=== PATIENT | male | born 1990 | race Caucasian/White ===

== ENCOUNTER 2016-09-06 10:45 | Emergency (ER) | payer BC, OTHER ==
[~2016-09-06] VITALS: Wt 81.8 kg
--- NOTE | 2016-09-06 11:17 | ERA ---
ER Documentation Chief Complaint Date/Time DATE: 09/06/16 TIME: 11:11 Chief Complaint wound recheck HPI Patient is 26-year-old male who is in [place] 10 days ago and sustained an injury to his legs bilaterally. [place] him in when he sustained cuts to his legs bilaterally. Was seen and evaluated in [place] where he stitches to his left lower leg and Bactrim and Keflex. Patient denies any discharge, swelling, increasing pain or fever since the injury. Patient denies any neurological deficits. There are no other associated manifestations. Patient has been taking medication prescribed in a stroller for swelling and pain. ROS All systems reviewed and are negative except as per history of present illness. Allergies Allergies: Coded Allergies: No Known Allergy (Unverified , 03/05/14) PMhx/Soc Hx Alcohol Use: Yes (OCCASIONALLY) Hx Substance Use: No Hx Tobacco Use: No Physical Exam Vitals Vital Signs Date Time Temp Pulse Resp B/P Pulse Ox O2 Delivery O2 Flow Rate FiO2 09/06/16 11:00 97.9 73 20 132/73 97 Physical Exam Const: Well-appearing 26-year-old male. Bandages on bilateral lower legs upon presentation. Head: Atraumatic Eyes: Normal Conjunctiva ENT: Normal External Ears, Nose and Mouth. Neck: Full range of motion..~ No meningismus. Resp: Clear to auscultation bilaterally Cardio: Regular rate and rhythm, no murmurs Abd: Soft, non tender, non distended. Normal bowel sounds Skin: No petechiae or rashes Back: No midline or flank tenderness Ext: 10 x 2 cm shallow, on the right medial aspect of toe/foot. 2 stitches approximately 7 cm in length crossing each other simple interrupted on the left anterior lower leg about 10 cm below the kneecap. Scrapes with mild erythema bilaterally on the lower legs. Neur: Awake and alert Psych: Normal Mood and Affect Procedures/MDM Patient's 26-year-old male presents 10 days after sustaining bilateral lower leg lacerations while in [place] in the ocean. Patient was seen and evaluated in [place] and was treated with antibiotics. Today he has no plans or signs or symptoms of infection so we will go ahead and take out the sutures and discharged with return precautions for signs of infection. Wound is cleaned and re-bandaged by nurses. MACIEJ HIGGINS PA-C Sep 06, 2016 11:17
[2016-09-06] MEDS ORDERED: IBUP-1542 PO (11:18)
== END 2016-09-06 12:18 | disposition home or self-care (01) ==
LOC: FTE 10:45
DX: Z48.01 Encounter for change or removal of surgical wound dressing (principal)
CPT/HCPCS: 99283